=== PATIENT | female | born 1940 | race Caucasian/White ===

== ENCOUNTER → 2016-08-01 | Outpatient (CLI) | payer MEDICARE, OTHER ==
[~2016-08-01] MED LIST: ALDACTONE PO; AMARYL PO; ARIMIDEX1 MG PO; ASPIRIN81 MG PO; ASPIRINEC PO; B COMPLEX1 EACH PO; CALTRATE PLUS T1 TAB PO; FENOFIBRATE160 MG PO; FIBERCON625 MG PO; FISH OIL300 MG PO; HUMALOG100 UNIT/2 SUBQ; LEVEMIR; LISINOPRIL PO; METFORMIN PO; MULTI-VIT/MIN P1 TAB PO; NEURONTIN100 MG PO; NEXIUM PO; NOVOLOG100 U/ML SUBQ; TRESIBA FL200 UNIT/1 SUBQ; TRICOR PO; VITAMIN D-32000 UNI1 PO
--- NOTE | ~2016-08-01 | US37 ---
[facility] A Service of [facility] & [facility] RADIOLOGY TEXT RESULTS PATIENT: CLAYTON SALEEM LOCATION: CNIV : 40 UNIT #: [id number] AGE: [address]: Sam Felix MD SEX: F ORDER DR: [id number] [facility] [address] [place], [place] [address] [id number] MR#: [id number] Acc #: [id number] NAME: CLAYTON SALEEM : 1940 SEX: F STUDY DATE/TIME: 08/01/2016 14:52 UNIT: CNIV ROOM: STUDY DESCRIPTION: US Carotid W/Doppler Bilateral Attending Physician: Sam Felix M.D. Referring Physician: Sam Felix M.D. Ordering Physician: Sam Felix M.D. Primary Care Physician: Shayna Lloyd M.D. MEDICAL IMAGING REPORT This report is preliminary unless electronic signature is present EXAM Bilateral carotid duplex, 08/01/16 HISTORY Carotid bruits FINDINGS There is patent flow seen throughout the right common carotid, internal carotid and external carotid arteries. There is mild, diffuse homogenous, irregular appearing plaque that is seen in the right common carotid, internal carotid, external carotid arteries. The right common carotid artery peak velocity is 72 cm/sec. The right internal carotid artery peak systolic over end diastolic velocities are: Proximal 65/15 cm second, mid 66/20 cm per second, distal 99/31 cm per second. The right external carotid artery has a peak velocity of 69 cm sec. Vertebral artery is 64 cm per second. The right ICA/CCA ratio is 1.38. There is patent flow seen through the left common carotid, internal carotid and external carotid arteries. There is diffuse, irregular appearing homogeneous plaque seen in the left common carotid artery, extending to the carotid bifurcation, internal and external carotid arteries. The left common carotid artery peak velocity is 56 cm/second. The left internal carotid artery peak systolic/end diastolic velocities are: Proximal 60/20 cm/sec, mid 57/19 cm sec, distal 52/15 cm sec. The left external carotid artery peak velocity is 56 cm/sec, vertebral artery 35 cm sec. The left ICA to CCA ratio is 1.06. IMPRESSION 1. The right carotid artery has minimal atherosclerosis which is not hemodynamically significant by duplex criteria (less than 50%). 2. The left carotid artery has minimal atherosclerosis which is not hemodynamically significant by duplex criteria (less than 50%). [facility] A Service of [facility] & [facility] RADIOLOGY TEXT RESULTS PATIENT: CLAYTON SALEEM LOCATION: CNIV : 40 UNIT #: [id number] AGE: [address]: Sam Felix MD SEX: F ORDER DR: 3. Vertebral flow is antegrade bilaterally. Dictated by... Nathanael Grimm M.D. THIS IS AN ELECTRONICALLY VERIFIED REPORT Nathanael Grimm M.D. at 08/04/2016 1:41 PM Pablo TD: 08/01/2016 20:18 JOB #: [id number] MEDICAL IMAGING REPORT Page 1 of 1 COPY
== END | disposition home or self-care (01) ==
LOC: CNIV 14:00
DX: R09.89 Other specified symptoms and signs involving the circulatory and respiratory systems (principal); I35.0 Nonrheumatic aortic (valve) stenosis
CPT/HCPCS: 93880

== ENCOUNTER 2016-10-06 13:32 | Inpatient (IN) | payer MEDICARE, OTHER ==
--- NOTE | ~2016-10-06 | DS ---
Unit #: [id number] #: [id number] Patient: CLAYTON SALEEM [id number] [facility]. [place], [place] [address] [id number] I MR#: [id number] NAME: CLAYTON SALEEM. ROOM: 556 Age: 76 Sex: F Admission Date: 10/06/2016 : 1940 Discharge Date: 10/09/2016 Attending Physician: Regino Aguirre M.D. Primary Care Physician: Shayna Lloyd M.D. DISCHARGE SUMMARY TRANSFER DIAGNOSES 1. Acute non-ST elevation myocardial infarction. 2. Status post cardiac catheterization 10/08/[address] Aguirre at [facility] that reveals the following results: a) Left main with 75% in the proximal third. There was ventricularization of the pressure waveform in each engagement of the left main ostium. b) Left anterior descending artery was 75-80% concentric stenosis in the ostium. Mid and distal LAD is small in caliber, less than 2 mmHg that may not be bypassable. Septal perforators and diagonal branches are normal. c) Circumflex artery medium caliber nondominant vessel with two branches normal. d) Right coronary artery large caliber, dominant vessel with 30% mid vessel stenosis. e) Ejection fraction of 30%. There was moderate to severe hypokinesis of the anterior apical wall with moderate hypokinesis of the inferior basal wall. f) There was a peak gradient of 21 mmHg with mean gradient of 26 mmHg with calculated aortic valve area 0.86 and index of 0.47. There was moderate pulmonary hypertension with pulmonary artery pressures 52/32 mmHg with wedge pressure of 21 mmHg. 3. 2D echocardiogram 08/01/2016 shows ejection fraction of 55-60% with moderate concentric left ventricular hypertrophy. There is impaired left ventricular relaxation. Moderate to severe aortic stenosis with peak gradient of 55-61 mmHg. Mean gradient 27 mmHg. Aortic valve area 0.9 cm sq. There is mild mitral regurgitation and mild tricuspid regurgitation. 4. 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 5. Hypertension. 6. Diabetes type 2. 7. GERD. 8. Lifelong nonsmoker. 9. Chronic kidney disease stage 3. 10. Acute diastolic heart failure. TRANSFER MEDICATIONS 1. Neurontin 100 mg q. h.s. 2. Fibercon 625 mg daily p.r.n. constipation. 3. Atorvastatin 80 mg q. h.s. 4. Metoprolol tartrate 12.5 mg b.i.d. 5. Fenofibrate 67 mg daily. 6. Levemir 45 units subcu b.i.d. (substitution for Tresiba 90 mg q. Unit #: [id number] #: [id number] Patient: CLAYTON SALEEM h.s.). 7. NovoLog for medium sliding scale a.c. and h.s. 8. Mucomyst 600 mg b.i.d. x4 doses. 9. Vitamin B complex, one tablet q. h.s. 10. Aspirin 81 mg daily. 11. Amoxicillin 875 mg b.i.d. x10 days, start at 10/06/2016. 12. Nitroglycerin 0.4 mg sublingual q.5 minutes x3 p.r.n. chest pain. HOSPITAL COURSE This is a 76-year-old white female who is known to Dr. Felix that has a history of severe aortic stenosis where she was advised to undergo TAVR. However, the patient wanted to wait until later in the year before deciding. She developed shortness of breath that has worsened over the past two weeks associated with weakness. She had no chest pain. She came to the emergency room for evaluation which she was found to be in acute diastolic heart failure. However, a BNP was elevated at 755. She was diuresed gently with IV diuretics. Her heart failure improved. She had an elevated troponin of 0.88 that peaked at 0.95 ruling her in for an acute non-ST elevation myocardial infarction. She was advised to undergo a right and left heart catheterization given the history of aortic stenosis and chest pain that may be ischemic in origin. She agreed. She was given aspirin, started on beta nimco but CHERYL inhibitor was discontinued because of fear of contrast-induced nephropathy. Dr. Fritz saw the patient where ultrasound of the kidney was ordered. The ultrasound was negative for hydronephrosis but suggest chronic renal disease. There was no obstructing stones. She was treated with Mucomyst and started on IV fluids prior to procedure that will continue after heart catheterization. The following day, the patient underwent cardiac catheterization which found her to have left main stenosis of 70-80% ostium. The LAD had 75-80% proximal stenosis. There was not any significant stenosis in the right coronary artery and circumflex artery was normal. Her ejection fraction, which was previously 50-55% per echocardiogram in July, has dropped to 35-40%. Right heart cath was also done to evaluate severity of the aortic stenosis. There was a peak gradient of 21 mmHg with mean gradient of 26 mmHg with calculated aortic valve area 0.86 and index of 0.47. There was moderate pulmonary hypertension with pulmonary artery pressures 52/32 mmHg with wedge pressure of 21 mmHg. The patient was advised to undergo aortic valve replacement and coronary artery bypass graft for which she was agreeable. She will need to transfer to [facility] which will be done today. ASSESSMENT VITAL SIGNS: Blood pressure 112/83, heart rate 74, temperature 97.5. CHEST: Clear to auscultation. HEART: S1, S2 with regular rate and rhythm. There is a grade 2 out of 6 systolic murmur heard best along the right sternal border. No rubs or clicks. ABDOMEN: Soft, nontender but bowel sounds are present. EXTREMITIES: Without leg edema. Right groin site is without hematoma or bruising. DIAGNOSTIC STUDIES LABORATORY STUDIES: Glucose 129, BUN 29, creatinine 1.2, sodium 141, potassium 4.5. Troponin 0.95. CK total is 210. BNP 548, cholesterol 124, triglycerides 185, LDL 54, HDL 33, TSH 2.26. White count 8.0, hemoglobin 11.4, hematocrit 34.6, platelet count is 199. DIAGNOSTIC IMAGING: Ultrasound of the kidney on 10/07/2016 shows no Unit #: [id number] #: [id number] Patient: CLAYTON SALEEM evidence of hydronephrosis. There is imaging pictures suggestive of chronic renal disease. There is probable small nonobstructive stones. Ultrasound of the carotids 08/01/2016 shows right carotid artery with less than 50% stenosis. Left carotid artery also with less than 50% stenosis. CARDIOVASCULAR STUDIES: Electrocardiogram shows ventricular paced rhythm, underlying sinus rhythm. CONSULTATIONS Dr. Fritz for renal management. DISPOSITION [facility]. PLAN 1. The patient will be transferred to [facility]. Evaluation will be done per Dr. Ganzel for coronary artery bypass graft with aortic valve replacement. Dictated by... Primitivo Roblero A.P.R.N. for Anjali Chavarria/rina TD: 10/09/2016 05:58 JOB #: [id number] DISCHARGE SUMMARY Page 1 of 1 X Primitivo Roblero APRN X DISCHARGE SUMMARY
--- NOTE | ~2016-10-06 | EKG ---
PATIENT: CLAYTON SALEEM UNIT #: [id number] Ventricular Rate: 80 BPM Atrial Rate: 80 BPM P-R Interval: 182 ms QRS Duration: 188 ms Q-T Interval: 492 ms QTC Calculation(Bezet): 567 ms P [place]: 39 degrees Calculated R [place]: -72 degrees Calculated T [place]: 95 degrees Diagnosis Line: Electronic ventricular pacemaker Diagnosis Line: No previous ECGs available Diagnosis Line: Confirmed by JAMES WALDEN MD ([id number]) on 10/08/2016 Diagnosis Line: 7:12:21 PM INTERPRETING MD: IRAM MUELLER
--- NOTE | ~2016-10-06 | CO ---
Unit #: [id number] #: [id number] Patient: CLAYTON SALEEM [id number] [place], [place] [address] [id number] I MR#: [id number] NAME: CLAYTON SALEEM. ROOM: 55 Age: 76 Sex: F Admission Date: 10/06/2016 : 1940 Attending Physician: Regino Aguirre M.D. Primary Care Physician: Shayna Lloyd M.D. Consultation Date: 10/07/2016 CONSULTATION REPORT REASON FOR CONSULT History of chronic kidney disease with evaluation prior to heart catheterization. Thank you very much for this consultation. HISTORY OF PRESENT ILLNESS The patient is an extremely pleasant, 76-year-old, white female, who has a history of CKD, who was admitted with worsening dyspnea on exertion and elevated troponin after presenting to the emergency room yesterday. She states she noticed her being more short of breath on exertion starting back in early August. Her exercise tolerance has decreased since then. She denies any chest pains. She does have a history of significant aortic stenosis and also has a history of pacemaker placement, but she has never had a heart catheterization nor has she had any recent stress test. She was on her way to get a bone scan yesterday when she had even worsening dyspnea on exertion. She presented to the emergency room where she was found to have an elevated troponin and she has been subsequently admitted for further workup including heart catheterization. Her creatinine is 1.2 today on labs with an eGFR of 44. She has seen a jewel bearing driller in the past, but has requested to see me her today. She denies any nausea, vomiting, or diarrhea. No hematuria or dysuria. She states she does have a history of ureteropelvic junction obstruction and had a stent placed, which was subsequently removed; however, this has been many years ago. She states she has not had a recent kidney ultrasound. She denies any NSAID use. She is on Aldactone as an outpatient and uses occasional HCTZ if she has some swelling. She states her weight has increased slightly over the past several weeks. She otherwise has no complaints. PAST MEDICAL HISTORY Significant for diabetes, chronic kidney disease, stage 3, hypertension, history of severe aortic stenosis, history of permanent pacemaker placement, GERD, osteoarthritis, and breast cancer. PAST SURGICAL HISTORY Mastectomy, cholecystectomy, back surgery, hysterectomy, carpal tunnel, hemorrhoidectomy, appendectomy and tonsillectomy. SOCIAL HISTORY Lives with her . Never smokes. Denies any current alcohol or drug use. FAMILY HISTORY Negative for any kidney disease. She does have a significant family Unit #: [id number] #: [id number] Patient: CLAYTON SALEEM history of diabetes. REVIEW OF SYSTEMS A 12-system review of systems is negative except as per HPI. MEDICATIONS As per the med rec. PHYSICAL EXAMINATION VITAL SIGNS: Blood pressure 120s to 150s over 60s to 70s; heart rate 80s; respirations 18; T-max 98 degrees. GENERAL: She is a pleasant, alert and oriented. No acute distress. HEENT: Head is normocephalic, atraumatic. ENT; pupils are equal, round, and reactive to light. Oropharynx is clear. NECK: Supple. No JVD. LUNGS: Clear to auscultation bilaterally with no wheezes, rhonchi, or crackles. HEART: Regular rate and rhythm. No murmurs, gallops, or rubs. ABDOMEN: Soft and nontender with positive bowel sounds. EXTREMITIES: She has no lower extremity edema. DIAGNOSTIC STUDIES LABORATORY RESULTS: Sodium 140, potassium 4.2, chloride 107, bicarb 22, BUN 28, creatinine 1.2, glucose 73, calcium 9.5, troponin 0.95. White count 8, hemoglobin 11.8, platelets 188. IMPRESSION/PLAN 1. Chronic kidney disease, stage 3. Creatinine 1.2 with an eGFR of 44. Lytes were okay. The patient does have moderate risk of contrast induced nephropathy. She also describes a history of ureteropelvic junction obstruction. We will check ultrasound and UA. The patient is okay to proceed with heart catheterization tomorrow. We will start oral Mucomyst and we will also start gentle IV fluids later tonight. Risks of heart catheterization in terms of renal function were described to the patient, and she is willing to proceed. 2. Elevated troponin, possible non-ST segment elevation myocardial infarction. The patient is for heart cath tomorrow. 3. Hypertension, blood pressure stable. 4. Diabetes, type 2. 5. Aortic stenosis. 6. Anemia, mild. PLAN As listed above, the patient is okay for heart cath tomorrow. We will start Mucomyst and gentle IV fluids later tonight. Continue to hold diuretics as well as CHERYL inhibitor for now. We will check urinalysis with microscopy and ultrasound for further workup. We will have further recommendations as her hospital course progresses. Thank you very much for this consultation. Dictated by... Ton Fritz M.D. SOO/soni TD: 10/08/2016 05:23 Unit #: [id number] #: [id number] Patient: CLAYTON SALEEM JOB #: [id number] CONSULTATION REPORT Page 1 of 1 X Ton Fritz MD X CONSULTATION REPORT
--- NOTE | ~2016-10-06 | US77 ---
[facility] A Service of [facility] & [facility] RADIOLOGY TEXT RESULTS PATIENT: CLAYTON SALEEM LOCATION: [facility] : 40 UNIT #: [id number] AGE: [address]: Regino Aguirre MD SEX: F ORDER DR: [id number] [facility] [address] [facility] [place], [place] [address] [id number] I MR#: [id number] #: [id number] NAME: CLAYTON SALEEM. : 1940 SEX: F STUDY DATE/TIME: 10/07/2016 11:10 UNIT: [facility] ROOM: [facility] STUDY DESCRIPTION: US Kidney Bilateral Complete Attending Physician: Regino Aguirre M.D. Ordering Physician: Regino Aguirre M.D. Primary Care Physician: Shayna Lloyd M.D. MEDICAL IMAGING REPORT This report is preliminary unless electronic signature is present EXAM Renal ultrasound bilateral 10/07/2016 INDICATIONS Planned heart catheterization procedure tomorrow. Hypertension, diabetes. BUN 28, creatinine 1.2, GFR 43.9. TECHNIQUE Sonographic imaging of the kidneys was performed bilaterally and compared with 11/15/2015. FINDINGS Incidental fatty infiltration of the liver. The right kidney measures 11.5 cm long axis and the left 12 cm. Probable small shadowing stones bilaterally, more conspicuous on the right than the left. No distinct evidence of hydronephrosis on either side. There is cortical thinning bilaterally which is nonspecific but suggestive of chronic renal parenchymal disease. Bladder not well distended or evaluated. IMPRESSION 1. No evidence of hydronephrosis on either side. 2. Imaging features most suggestive of chronic renal parenchymal disease with probable small nonobstructing stones, right greater than left. 3. Incidental fatty infiltration of the liver. Dictated by... Edvin Sharma M.D. THIS IS AN ELECTRONICALLY VERIFIED REPORT Edvin Sharma M.D. at 10/07/2016 5:07 PM DEANDRE/alyssa STS. [facility] A Service of [facility] & [facility] RADIOLOGY TEXT RESULTS PATIENT: CLAYTON SALEEM LOCATION: [place] [address] : 40 UNIT #: [id number] AGE: [address]: Regino Aguirre MD SEX: F ORDER DR: TD: 10/07/2016 15:41 JOB #: [id number] MEDICAL IMAGING REPORT Page 1 of 1 COPY
--- NOTE | ~2016-10-06 | EKG ---
PATIENT: CLAYTON SALEEM UNIT #: [id number] Ventricular Rate: 79 BPM Atrial Rate: 79 BPM P-R Interval: 194 ms QRS Duration: 186 ms Q-T Interval: 486 ms QTC Calculation(Bezet): 557 ms P [place]: 42 degrees Calculated R [place]: -73 degrees Calculated T [place]: 95 degrees Diagnosis Line: Electronic ventricular pacemaker Diagnosis Line: No previous ECGs available Diagnosis Line: Confirmed by JAMES WALDEN MD ([id number]) on 10/08/2016 Diagnosis Line: 7:20:46 PM INTERPRETING MD: IRAM MUELLER
--- NOTE | ~2016-10-06 | HP ---
Unit #: [id number] #: [id number] Patient: CLAYTON SALEEM [id number] [facility]. [address] [place], [place] [address] [id number] I MR#: [id number] NAME: CLAYTON SALEEM. ROOM: 556 Age: 76 Sex: F Admission Date: 10/06/2016 : 1940 Attending Physician: Regino Aguirre M.D. Primary Care Physician: Shayna Lloyd M.D. HISTORY AND PHYSICAL HISTORY OF PRESENT ILLNESS This is a 76-year-old white female who is known to Dr. Felix who has a history of hypertension, diabetes and moderate to severe aortic stenosis. During transesophageal echocardiogram for determination of severity of aortic stenosis in 2014, she had high grade AV block that deteriorated to sinus arrest. The patient went for immediate permanent pacemaker. Her last echocardiogram in the office showed critical aortic stenosis with aortic valve area of 0.9 cm2. TAVR was discussed but the patient wanted to hold off. She has a history of right breast cancer and was scheduled for a followup outpatient bone scan. When walking across the parking lot at [facility], she became dyspneic and went to the emergency room. Over the past two weeks, she has noted shortness of breath that mostly occurs on exertion. She felt the shortness of breath was because of sinus infection that was treated with antibiotic on a visit to the [facility] on 10/02/2016. Her dyspnea did not improve. She is usually very active but, when walking into grocery store, it causes so much dyspnea that she has to stop and rest. This is unusual for her. She had an increase in her abdominal girth and noted a weight gain. She denies paroxysmal nocturnal dyspnea or orthopnea. She has no chest pain, palpitations or dizziness. She did complain of intermittent left arm pain at the elbow that she attributed to arthritis. At [facility], the patient was found to have an elevated troponin of 0.88. BNP also elevated at 765 but chest x-ray noted full heart failure. EKG shows no acute ischemic changes. Stress test in 2002 was negative. No cardiac catheterization in the past. PAST MEDICAL HISTORY 1. 2-D echocardiogram, 08/01/2016. Ejection fraction 55 to 60%. There was moderate concentric left ventricular hypertrophy. Impaired left ventricular relaxation. Moderate to severe aortic stenosis with peak gradient of 55 to 61 mmHg. Mean gradient of 27 mmHg. Aortic valve area 0.9 cm2. Mild mitral regurgitation and mild tricuspid regurgitation. 2. Asystole arrest with high-grade AV block status post permanent pacemaker with Medtronic device 11/[address] Mcclain at [facility]. 3. Stress test in 2002. No ischemia. 4. Hypertension. 5. Diabetes mellitus type 2. 6. GERD. 7. Osteoarthritis. 8. Lifelong nonsmoker. Unit #: [id number] #: [id number] Patient: CLAYTON SALEEM 9. Bilateral carotid stenosis of less than 50% bilaterally. 10. Chronic kidney disease. PAST SURGICAL HISTORY 1. Right mastectomy for cancer. 2. Cholecystectomy. 3. Back surgery. 4. Hysterectomy. 5. Carpal tunnel release. 6. Hemorrhoidectomy. 7. Appendectomy. 8. Tonsillectomy. SOCIAL HISTORY The patient is and cares for her . She has never smoked. She denies illicit drug and alcohol use. FAMILY HISTORY Mother had what the patient refers to as "cardiac insufficiency". ALLERGIES Cephalosporin and Ceclor. HOME MEDICATIONS 1. Humalog 40 units subcu VIA VGO pump. 2. Fibercon one tablet daily p.r.n. 3. Fenofibrate 80 mg daily. 4. Aspirin 81 mg daily. 5. Zestril 20 mg daily. 6. Fish oil 300 mg daily. 7. Vitamin D 3,000 units daily. 8. Tresiba 90 units subcu q.h.s. 9. Aldactone 25 mg daily. 10. Neurontin 100 mg q.h.s. 11. Vitamin B complex one tablet daily. REVIEW OF SYSTEMS CONSTITUTIONAL: Positive for weakness and fatigue, noted weight gain. No weight loss. HEENT: No headache, hearing or vision changes, difficulty with swallowing. The patient denies dizziness. CARDIOVASCULAR: The patient has no symptoms of angina. The patient denies palpitations. No paroxysmal nocturnal dyspnea, orthopnea. No syncope or near syncope. RESPIRATORY: Positive for dyspnea at rest that is worse on exertion. No cough or hemoptysis. GASTROINTESTINAL: No abdominal pain, nausea, vomiting. No constipation or melena. EXTREMITIES: Negative for lower extremity edema. DIAGNOSTIC STUDIES LABORATORY: Hemoglobin 11.5, hematocrit 34.0, platelet count 182, white count 8.3. Sodium 134, potassium 4.2, BUN 34, creatinine 1.13, glucose 170. IMAGING: Chest x-ray shows congestive heart failure. CARDIOVASCULAR: EKG shows ventricularly paced rhythm with underlying Unit #: [id number] #: [id number] Patient: CLAYTON SALEEM sinus rhythm with a first degree AV block. There is left ventricular hypertrophy. IMPRESSION 1. Acute non-ST elevation myocardial infarction. 2. Acute diastolic heart failure. 3. Moderate to severe aortic stenosis. 4. History of sick sinus syndrome status post permanent pacemaker. 5. Hypertension. 6. Diabetes type 2. 7. Chronic kidney disease. PLAN 1. We will gently diurese the patient with IV diuretics. 2. Because of chronic kidney disease, we will have Dr. Maddox see the patient for clearance prior to cardiac catheterization. 3. We will continue to trend troponin and EKG. 4. Fasting lipid profile will be obtained. We will start the patient on (1) statin with Lipitor 80 mg q.h.s. 5. Continue anticoagulation with aspirin. We will add Lovenox. 6. Place the patient on fluid restriction. 7. It was recommended to the patient to have a right and left heart catheterization to define coronary anatomy and severity of aortic stenosis. Risks and benefits of bleeding, myocardial infarction, CVA, renal vessel complications and have been discussed with the patient and she is agreeable. Once heart failure has improved, we will scheduled cardiac catheterization. Dictated by Carmen Jacobs M.D. AEP/michelle TD: 10/07/2016 06:08 JOB #: [id number] HISTORY AND PHYSICAL Page 1 of 1 X Primitivo Roblero APRN X HISTORY AND PHYSICAL
[~2016-10-06 13:32] MED LIST changes: -ASPIRIN81 MG PO; -B COMPLEX1 EACH PO; -FENOFIBRATE160 MG PO; -FISH OIL300 MG PO; -HUMALOG100 UNIT/2 SUBQ; -NEURONTIN100 MG PO; -TRESIBA FL200 UNIT/1 SUBQ; -VITAMIN D-32000 UNI1 PO
[2016-10-06] MEDS ORDERED: HUMALOG100 UNIT/2 SUBQ (16:20)
[2016-10-06] MEDS ORDERED: FIBERCON625 MG PO (16:21)
[2016-10-06] MEDS ORDERED: FENOFIBRATE160 MG PO (16:27)
[2016-10-06] MEDS ORDERED: ASPIRIN81 MG PO (16:28)
[2016-10-06] MEDS ORDERED: LISINOPRIL PO (16:29)
[2016-10-06] MEDS ORDERED: TRESIBA FL200 UNIT/1 SUBQ (16:29)
[2016-10-06] MEDS ORDERED: ALDACTONE PO (16:34)
[2016-10-06] MEDS ORDERED: NEURONTIN100 MG PO (16:35)
[2016-10-06] MEDS ORDERED: FISH OIL300 MG PO (16:37)
[2016-10-06] MEDS ORDERED: B COMPLEX1 EACH PO (16:37)
[2016-10-06] MEDS ORDERED: VITAMIN D-32000 UNI1 PO (16:37)
[2016-10-07 06:50] LABS: HEMATOCRIT 35.4 % (35.0-45.0); HEMOGLOBIN 11.8 gm/dL (12.0-16.0); MEAN CELL VOLUME 90.6 FL (83-96); MEAN CORPUSCULAR HEMOGLOBIN 30.2 PG (28-34); MEAN CORPUSCULAR HGB CONC 33.3 g/dL (30-36); MEAN PLATELET VOLUME 8.9 FL (6.5-11.5); RED BLOOD COUNT 3.91 X10e (3.90-5.30); RED CELL DISTRIBUTION WIDTH 14.5 % (11.0-15.5)
[2016-10-07 07:28] LABS: BUN/CREATININE RATIO 23.33; CALCIUM SERUM 9.5 mg/dL (8.4-10.2); CREATININE SERUM 1.2 mg/dL (0.6-1.4); GLOM FILT RATE Estimated 43.9 mL/min (>60); POTASSIUM 4.2 mmol/L (3.5-5.1)
[2016-10-07 08:39] LABS: %MB 1.8 % (0.0-4.0); MB 3.8 ng/ml
[2016-10-07 18:15] LABS: URINE APPEARANCE CLEAR; URINE BILIRUBIN NEG (NEG); URINE BLOOD NEG (NEG); URINE COLOR YELLOW; URINE GLUCOSE NEG (NEG); URINE KETONE NEG (NEG); URINE LEUKOCYTE ESTERASE TRACE (NEG); URINE NITRATE NEG (NEG); URINE PH 5.5 (5-8); URINE PROTEIN 2+ (NEG); URINE SPECIFIC GRAVITY 1.015 (1.003-1.035); URINE UROBILINOGEN 0.2 MG/DL (NEG)
[2016-10-07 18:17] LABS: U HYALINE CASTS AUWI 0-2 /[LPF]; URBCS1 AUWI 0-2 /[HPF] (0-2); URINE BACTERIA AUWI NEG (NEGATIVE); URINE SQUAMOUS EPITHELIAL CELL NONE SEEN /[HPF]
[2016-10-08 07:18] LABS: HEMATOCRIT 34.6 % (35.0-45.0); HEMOGLOBIN 11.4 gm/dL (12.0-16.0); MEAN CELL VOLUME 90.3 FL (83-96); MEAN CORPUSCULAR HEMOGLOBIN 29.8 PG (28-34); MEAN CORPUSCULAR HGB CONC 32.9 g/dL (30-36); MEAN PLATELET VOLUME 9.5 FL (6.5-11.5); RED BLOOD COUNT 3.83 X10e (3.90-5.30); RED CELL DISTRIBUTION WIDTH 14.4 % (11.0-15.5)
[2016-10-08 07:28] LABS: PARTIAL THROMBOPLASTIN TIME 25.8 SECONDS (23.5-31.3); PROTHROMBIN TIME (PATIENT) 11.3 SECONDS (10.0-11.7)
[2016-10-08 07:46] LABS: BUN/CREATININE RATIO 24.16; CALCIUM SERUM 9.2 mg/dL (8.4-10.2); CREATININE SERUM 1.2 mg/dL (0.6-1.4); GLOM FILT RATE Estimated 43.9 mL/min (>60); POTASSIUM 4.5 mmol/L (3.5-5.1)
[2016-10-08 09:38] LABS: ARTERIAL BLD GAS O2 SATURATION 94.2 % (90.0-100.0); ARTERIAL BLOOD GAS HCO3 22.8 mmol/L; ARTERIAL BLOOD GAS MET HB 0.6 %sat (0.0-2.0); ARTERIAL BLOOD GAS PCO2 46.9 mmHg (35.0-45.0); ARTERIAL BLOOD GAS pH 7.295 (7.350-7.450)
[2016-10-08 09:39] LABS: ARTERIAL BLD GAS O2 SATURATION 58.7 % (90.0-100.0); ARTERIAL BLOOD GAS CARBOXY HB 1.2 %sat (0.0-9.0); ARTERIAL BLOOD GAS HCO3 24.5 mmol/L; ARTERIAL BLOOD GAS MET HB 0.6 %sat (0.0-2.0); ARTERIAL BLOOD GAS pH 7.298 (7.350-7.450)
[2016-10-08 09:40] LABS: ARTERIAL BLD GAS O2 SATURATION 54.3 % (90.0-100.0)
[2016-10-08 09:46] LABS: ARTERIAL BLOOD GAS PO2 35.5 mmHg (80.0-100)
[2016-10-09 15:39] LABS: ARTERIAL DRAW? NO
[2016-10-09 15:40] LABS: ARTERIAL DRAW? NO
== END 2016-10-09 01:05 | DRG 280 ==
LOC: UNDOADMOB 15:17 → C5B 15:17
PROVIDERS: Internal Medicine Cardiovascular Disease; Nurse Practitioner
PROC: 4A023N8 Measurement of Cardiac Sampling and Pressure, Bilateral, Percutaneous Approach (ICD-10-PCS; principal; 2016-10-08)
PROC: B211YZZ Fluoroscopy of Multiple Coronary Arteries using Other Contrast (ICD-10-PCS; 2016-10-08)
PROC: B215YZZ Fluoroscopy of Left Heart using Other Contrast (ICD-10-PCS; 2016-10-08)
DX: I21.4 Non-ST elevation (NSTEMI) myocardial infarction (principal); I50.31 Acute diastolic (congestive) heart failure; I27.2 Other secondary pulmonary hypertension; N18.3 Chronic kidney disease, stage 3 (moderate); E11.9 Type 2 diabetes mellitus without complications; D64.9 Anemia, unspecified; I13.0 Hypertensive heart and chronic kidney disease with heart failure and stage 1 through stage 4 chronic kidney disease, or unspecified chronic kidney disease; I35.0 Nonrheumatic aortic (valve) stenosis; Z95.0 Presence of cardiac pacemaker; K21.9 Gastro-esophageal reflux disease without esophagitis; M19.90 Unspecified osteoarthritis, unspecified site; Z85.3 Personal history of malignant neoplasm of breast; Z79.82 Long term (current) use of aspirin; Z79.4 Long term (current) use of insulin; Z90.49 Acquired absence of other specified parts of digestive tract; Z90.710 Acquired absence of both cervix and uterus
CPT/HCPCS: 76770; 80048; 80061; 81003; 82550; 82553; 82803; 82947; 83880; 84443; 84484; 85027; 85347; 85610; 85730; 93005; 94760; 99152; 99153; C1769; C1887; J1644; J1650; J1815; J2250; J3010